=== PATIENT | female | born 1940 | race Caucasian/White ===

== ENCOUNTER 2017-10-27 17:42 | Inpatient (IN) | payer MEDICARE, MEDICAID ==
[~2017-10-27] VITALS: Ht 154.9 cm; Wt 77.2 kg
[~2017-10-27 17:42] MED LIST: AMIT-189 PO; BECL8.7A5 IH; CEPH500C2 PO; CLON-514 PO; DIPH25CA83 PO; FLUO40CA PO; HYDR-565 PO; LOPE1TAB46 PO; NAPR250T4 PO; NITR0.4T51 SL; ONDA4TAB12 PO; PHEN-824 PO; PRAV20TA PO
[2017-10-27] MEDS ORDERED: ipratropium/albuterol 3ml nebule NEB ONE (18:05)
[2017-10-27 18:16] LABS: BASOPHILS % (AUTO) 0.5 % (0-1); EOSINOPHILS # (AUTO) 0.4 X10'3 (0-0.9); EOSINOPHILS % (AUTO) 6.4 % (0-6); HEMATOCRIT 29.4 % (35.0-45.0); HEMOGLOBIN 9.4 g/dl (12.0-16.0); LYMPHOCYTES # (AUTO) 1.3 X10'3 (1.1-4.8); LYMPHOCYTES % (AUTO) 24.3 % (21-51); MEAN CORPUSCULAR HEMOGLOBIN 23.5 PG (27.0-31.0); MEAN CORPUSCULAR HGB CONC 31.9 % (33.0-36.5); MEAN CORPUSCULAR VOLUME 73.7 FL (78-98); MEAN PLATELET VOLUME 7.7 FL (7.4-10.4); MONOCYTES # (AUTO) 0.3 X10'3 (0-0.9); MONOCYTES % (AUTO) 6.3 % (2-12); NEUTROPHILS # (AUTO) 3.5 X10'3 (1.8-7.7); NEUTROPHILS % (AUTO) 62.5 % (42-75); PLATELET COUNT 477 X10'3 (140-440); RED BLOOD COUNT 3.99 X10'6 (4.20-5.60); RED CELL DISTRIBUTION WIDTH 16.5 % (11.5-14.5); WHITE BLOOD COUNT 5.5 X10'3 (4.5-11.0)
[2017-10-27 18:24] LABS: PARTIAL THROMBOPLASTIN TIME 27 SECONDS (22-32); PROTHROMBIN TIME 9.9 SECONDS (9.0-12.0)
[2017-10-27 18:29] LABS: ALANINE AMINOTRANSFERASE 39 U/L (12-78); ALBUMIN 3.6 G/DL (3.4-5.0); ALKALINE PHOSPHATASE 124 IU/L (46-116); ANION GAP 7 (8-16); ASPARTATE AMINO TRANSFERASE 43 U/L (10-37); BILIRUBIN,TOTAL 0.5 MG/DL (0.1-1.0); BLOOD UREA NITROGEN 9 MG/DL (7-18); BUN/CREATININE RATIO 9.3 (6.6-38.0); CALCIUM 8.5 MG/DL (8.5-10.1); CHLORIDE 100 MMOL/L (99-107); CREATININE 0.97 MG/DL (0.40-0.90); GLUCOSE 109 MG/DL (70-104); SODIUM 136 MMOL/L (135-145); TOTAL CARBON DIOXIDE 29.5 MMOL/L (24-32); TOTAL PROTEIN 7.1 G/DL (6.4-8.2); eGFR 56 ML/MIN
[2017-10-27 18:42] LABS: D-DIMER 0.54 MG/L FEU (0-0.50)
[2017-10-27] MEDS ORDERED: iohexol 350MG/ML 100ml bottle IV ONE (18:47)
[2017-10-27] MEDS ORDERED: HYDROcodone/acetaminophen 10/325mg tab PO ONE (20:20)
[2017-10-27] MEDS ORDERED: ALB0.5UD IH (20:43)
[2017-10-27] MEDS ORDERED: FLUO20CA39 PO (20:43)
[2017-10-27] MEDS ORDERED: PREVCR VG (20:43)
[2017-10-27] MEDS ORDERED: POLY17PO10 PO (20:43)
[2017-10-27] MEDS ORDERED: LORA-512 PO (20:43)
[2017-10-27] MEDS ORDERED: CLON-527 PO (20:43)
[2017-10-27] MEDS ORDERED: AMIT10TA6 PO (20:43)
[2017-10-27] MEDS ORDERED: ondansetron/PF 4mg/2ml inj IV PRN (21:55)
[2017-10-27] MEDS ORDERED: magnesium hydroxide 30ml (MOM) UD suspension PO PRN (21:55)
[2017-10-27] MEDS ORDERED: mag hydrox/Alum hydrox/simeth 30ml oral suspension PO PRN (21:55)
[2017-10-27] MEDS ORDERED: acetaminophen 325mg tablet PO PRN (21:55)
[2017-10-27] MEDS ORDERED: nitroGLYCERIN 0.4mg SUBLingual tab SL SCH (22:00)
[2017-10-27] MEDS ORDERED: albuterol 2.5 MG/3 ML nebule NEB PRN (22:00)
[2017-10-27] MEDS: HYDROcodone/acetaminophen 10/325mg tab PO PRN (22:27)
[2017-10-27] MEDS: clonazePAM 1mg tablet PO PRN (22:27)
[2017-10-28 00:25] VITALS: BP 102/51
[2017-10-28] MEDS ORDERED: azithromycin 250mg tablet PO ONE (02:10)
[2017-10-28] MEDS: CefTRIAXone/D5W-Rocephin 1gm 50 ML IV SCH ×2 (03:01→08:09)
[2017-10-28] MEDS: ipratropium/albuterol 3ml nebule NEB SCH ×4 (03:23→20:54)
[2017-10-28 06:08] LABS: ALANINE AMINOTRANSFERASE 37 U/L (12-78); ALBUMIN/GLOBULIN RATIO 0.9 (1.1-1.5); ALKALINE PHOSPHATASE 118 IU/L (46-116); ANION GAP 7 (8-16); ASPARTATE AMINO TRANSFERASE 40 U/L (10-37); BILIRUBIN,TOTAL 0.3 MG/DL (0.1-1.0); BLOOD UREA NITROGEN 8 MG/DL (7-18); BUN/CREATININE RATIO 7.8 (6.6-38.0); CALCIUM 8.1 MG/DL (8.5-10.1); CHLORIDE 104 MMOL/L (99-107); CREATININE 1.02 MG/DL (0.40-0.90); GLUCOSE 98 MG/DL (70-104); POTASSIUM 3.1 MMOL/L (3.5-5.1); SODIUM 139 MMOL/L (135-145); TOTAL CARBON DIOXIDE 27.7 MMOL/L (24-32); TOTAL PROTEIN 6.2 G/DL (6.4-8.2); eGFR 53 ML/MIN
[2017-10-28 06:17] LABS: EOSINOPHILS # (AUTO) 0.3 X10'3 (0-0.9); EOSINOPHILS % (AUTO) 7.3 % (0-6); HEMATOCRIT 25.9 % (35.0-45.0); HEMOGLOBIN 8.3 g/dl (12.0-16.0); LYMPHOCYTES # (AUTO) 1.6 X10'3 (1.1-4.8); LYMPHOCYTES % (AUTO) 37.3 % (21-51); MEAN CORPUSCULAR HEMOGLOBIN 23.3 PG (27.0-31.0); MEAN CORPUSCULAR VOLUME 72.9 FL (78-98); MEAN PLATELET VOLUME 7.7 FL (7.4-10.4); MONOCYTES # (AUTO) 0.5 X10'3 (0-0.9); NEUTROPHILS # (AUTO) 1.8 X10'3 (1.8-7.7); NEUTROPHILS % (AUTO) 43.4 % (42-75); PLATELET COUNT 427 X10'3 (140-440); RED BLOOD COUNT 3.55 X10'6 (4.20-5.60); WHITE BLOOD COUNT 4.2 X10'3 (4.5-11.0)
[2017-10-28] MEDS ORDERED: CAFFEINE CITRATE 60 MG/3 ML injection vial IV PRN (07:30)
[2017-10-28] MEDS ORDERED: glucagon, human recombinant 1mg kit SUBCUT PRN (07:30)
[2017-10-28] MEDS ORDERED: MESSAGE TO PHARMACY PO ONE (07:30)
[2017-10-28] MEDS ORDERED: potassium Cl 20 mEq SR tablet PO PRN (07:30)
[2017-10-28] MEDS ORDERED: potassium Cl 40MEQ/NS 500ml 500 ML IV PRN ×2 (07:30)
[2017-10-28] MEDS ORDERED: dextrose 50%-water 50ml dispensing syringe IV PRN ×2 (07:30)
[2017-10-28] MEDS ORDERED: insulin Lispro (HumaLOG) vial - multi-dose SQ SCH (07:30)
[2017-10-28] MEDS ORDERED: nitroGLYCERIN 0.4mg SUBLingual tab SL PRN (07:30)
[2017-10-28] MEDS ORDERED: dextrose ORAL solution 15 GM/59 ML bottle PO PRN ×2 (07:30)
[2017-10-28] MEDS ORDERED: metoprolol tartrate 1mg/ml inj IV PRN (07:30)
[2017-10-28] MEDS ORDERED: regadenoson 0.4mg/5ml syringe IV ONE (07:30)
[2017-10-28 07:38] VITALS: BP 123/49
[2017-10-28] MEDS: polyethylene glycol 3350 17gm powd pack PO SCH (08:00)
[2017-10-28] MEDS: amitriptyline 10mg tablet PO SCH ×3 (08:00→19:48)
[2017-10-28] MEDS: atorvastatin 10mg tablet PO SCH (08:08)
[2017-10-28] MEDS: clonazePAM 1mg tablet PO PRN ×2 (08:08→19:37)
[2017-10-28] MEDS: loratadine 10mg tablet PO SCH (08:08)
[2017-10-28] MEDS: FLUoxetine 20mg capsule PO SCH (08:09)
[2017-10-28] MEDS: potassium Cl 20 mEq SR tablet PO PRN ×3 (08:09→16:53)
[2017-10-28] MEDS: HYDROcodone/acetaminophen 10/325mg tab PO PRN (08:14)
[2017-10-28] MEDS: budesonide 0.5mg/2ml UD nebule IH SCH ×2 (09:34→20:54)
[2017-10-28 11:58] VITALS: BP 109/42
[2017-10-28 13:19] LABS: CLARITY,URINE CLEAR (Clear); COLOR,URINE YELLOW (Yellow); GLUCOSE, URINE NEGATIVE (Neg); KETONES,URINE NEGATIVE (Neg); LEUKOCYTE ESTERASE ,URINE SMALL (Neg); NITRITES, URINE NEGATIVE (Neg); OCCULT BLOOD,URINE NEGATIVE (Neg); PROTEIN,URINE NEGATIVE (Neg); UROBILINOGEN,URINE 0.2 E.U/dL (0.2-1.0)
[2017-10-28 13:23] LABS: UA COLLECTION TYPE NON-SPECIFIED
[2017-10-28 13:24] LABS: RBC,URINE 0-2 /HPF (0-2); WBC,URINE 0-4 /HPF (0-4)
[2017-10-28 13:25] LABS: BACTERIA,URINE FEW /HPF (Neg); MUCUS STRANDS FEW /LPF (Neg); SQUAMOUS EPITHELIAL CELL,UR MODERATE /LPF (FEW)
[2017-10-28] MEDS: HYDROcodone/acetaminophen 5mg/325mg tablet PO PRN ×2 (17:33→23:51)
[2017-10-28 20:00] VITALS: BP 150/65
[2017-10-28] MEDS ORDERED: insulin glargine (Lantus) pen - multi-dose SQ SCH (21:00)
[2017-10-29] VITALS: BP 146/63
[2017-10-29] MEDS: ipratropium/albuterol 3ml nebule NEB SCH ×3 (02:53→14:23)
[2017-10-29 06:03] LABS: BASOPHILS % (AUTO) 0.7 % (0-1); EOSINOPHILS # (AUTO) 0.4 X10'3 (0-0.9); EOSINOPHILS % (AUTO) 7.2 % (0-6); HEMATOCRIT 26.7 % (35.0-45.0); HEMOGLOBIN 8.6 g/dl (12.0-16.0); LYMPHOCYTES # (AUTO) 1.7 X10'3 (1.1-4.8); LYMPHOCYTES % (AUTO) 30.1 % (21-51); MEAN CORPUSCULAR HEMOGLOBIN 23.3 PG (27.0-31.0); MEAN CORPUSCULAR HGB CONC 32.1 % (33.0-36.5); MEAN CORPUSCULAR VOLUME 72.5 FL (78-98); MEAN PLATELET VOLUME 7.8 FL (7.4-10.4); MONOCYTES # (AUTO) 0.5 X10'3 (0-0.9); MONOCYTES % (AUTO) 8.5 % (2-12); NEUTROPHILS % (AUTO) 53.5 % (42-75); PLATELET COUNT 448 X10'3 (140-440); RED BLOOD COUNT 3.69 X10'6 (4.20-5.60); RED CELL DISTRIBUTION WIDTH 17.3 % (11.5-14.5); WHITE BLOOD COUNT 5.6 X10'3 (4.5-11.0)
[2017-10-29 06:25] LABS: ALANINE AMINOTRANSFERASE 29 U/L (12-78); ALBUMIN 3.1 G/DL (3.4-5.0); ALBUMIN/GLOBULIN RATIO 0.9 (1.1-1.5); ALKALINE PHOSPHATASE 104 IU/L (46-116); ANION GAP 10 (8-16); ASPARTATE AMINO TRANSFERASE 23 U/L (10-37); BILIRUBIN,TOTAL 0.2 MG/DL (0.1-1.0); BLOOD UREA NITROGEN 9 MG/DL (7-18); BUN/CREATININE RATIO 9.4 (6.6-38.0); CALCIUM 8.5 MG/DL (8.5-10.1); CHLORIDE 105 MMOL/L (99-107); CREATININE 0.96 MG/DL (0.40-0.90); GLUCOSE 103 MG/DL (70-104); POTASSIUM 3.7 MMOL/L (3.5-5.1); SODIUM 140 MMOL/L (135-145); TOTAL CARBON DIOXIDE 25.2 MMOL/L (24-32); TOTAL PROTEIN 6.5 G/DL (6.4-8.2); eGFR 57 ML/MIN
[2017-10-29 07:00] VITALS: BP 155/72
[2017-10-29] MEDS: budesonide 0.5mg/2ml UD nebule IH SCH (07:48)
[2017-10-29] MEDS: clonazePAM 1mg tablet PO PRN (07:52)
[2017-10-29] MEDS: atorvastatin 10mg tablet PO SCH (07:56)
[2017-10-29] MEDS: loratadine 10mg tablet PO SCH (07:57)
[2017-10-29] MEDS: FLUoxetine 20mg capsule PO SCH (07:57)
[2017-10-29] MEDS ORDERED: azithromycin 250mg tablet PO SCH ×2 (08:00→21:00)
[2017-10-29] MEDS: polyethylene glycol 3350 17gm powd pack PO SCH (08:00)
[2017-10-29] MEDS: amitriptyline 10mg tablet PO SCH (08:00)
== END 2017-10-29 14:37 | disposition home or self-care (01) | DRG 189 ==
LOC: ER 17:42 → ED HOLD 21:52 → SUR 3N 22:45
PROVIDERS: ADMIT Emergency Medicine; ATTEND Internal Medicine
PROC: B3201ZZ Computerized Tomography (CT Scan) of Thoracic Aorta using Low Osmolar Contrast (ICD-10-PCS; principal; 2017-10-27)
DX: J96.20 Acute and chronic respiratory failure, unspecified whether with hypoxia or hypercapnia (principal); J44.1 Chronic obstructive pulmonary disease with (acute) exacerbation; R07.89 Other chest pain; I50.9 Heart failure, unspecified; I11.0 Hypertensive heart disease with heart failure; I25.10 Atherosclerotic heart disease of native coronary artery without angina pectoris; F41.0 Panic disorder [episodic paroxysmal anxiety]; F32.9 Major depressive disorder, single episode, unspecified; E11.51 Type 2 diabetes mellitus with diabetic peripheral angiopathy without gangrene; E78.5 Hyperlipidemia, unspecified; R51 Headache; F17.200 Nicotine dependence, unspecified, uncomplicated; E78.00 Pure hypercholesterolemia, unspecified; F02.80 Dementia in other diseases classified elsewhere, unspecified severity, without behavioral disturbance, psychotic disturbance, mood disturbance, and anxiety; G30.9 Alzheimer's disease, unspecified; E87.6 Hypokalemia; G89.29 Other chronic pain; Z90.710 Acquired absence of both cervix and uterus; Z95.1 Presence of aortocoronary bypass graft; Z79.899 Other long term (current) drug therapy; Z79.4 Long term (current) use of insulin; Z88.6 Allergy status to analgesic agent; Z88.8 Allergy status to other drugs, medicaments and biological substances; Z86.73 Personal history of transient ischemic attack (TIA), and cerebral infarction without residual deficits; Z86.711 Personal history of pulmonary embolism
CPT/HCPCS: 36415; 71045; 71275; 76881; 80053; 81001; 82948; 83036; 84484; 85025; 85379; 85610; 85730; 87070; 93005; 93970; 94640; 94760; 97110; 97116; 97161; 99285; J0696; J1815; J7030; J7626; Q9967

== ENCOUNTER 2017-11-07 17:24 | Emergency (ER) | payer MEDICARE, MEDICAID ==
[~2017-11-07] VITALS: Ht 154.9 cm; Wt 77.1 kg
[~2017-11-07 17:24] MED LIST changes: +ALB0.5UD IH; -AMIT-189 PO; +AMIT10TA6 PO; -CEPH500C2 PO; +FLUO20CA39 PO; -FLUO40CA PO; +LORA-512 PO; -PHEN-824 PO; +POLY17PO10 PO; +PREVCR VG
[2017-11-07] MEDS ORDERED: ketorolac tromethamine 15mg/ml inj. IM ONE (18:10)
[2017-11-07] MEDS ORDERED: HYDROcodone/acetaminophen 5mg/325mg tablet PO ONE (18:10)
[2017-11-07] MEDS ORDERED: morphine 4 MG/ML inj SYRINge IM ONE (18:20)
[2017-11-07 18:51] VITALS: BP 131/87
== END 2017-11-07 18:52 | disposition home or self-care (01) ==
LOC: ER 17:25
DX: G89.29 Other chronic pain (principal); M54.41 Lumbago with sciatica, right side; E78.00 Pure hypercholesterolemia, unspecified; I10 Essential (primary) hypertension; J44.9 Chronic obstructive pulmonary disease, unspecified; Z90.49 Acquired absence of other specified parts of digestive tract; Z90.710 Acquired absence of both cervix and uterus; Z88.8 Allergy status to other drugs, medicaments and biological substances; Z79.899 Other long term (current) drug therapy
CPT/HCPCS: 96372; 99283; J2270; J1885

== ENCOUNTER 2018-01-28 13:55 | Emergency (ER) | payer MEDICARE, MEDICAID ==
[~2018-01-28] VITALS: Ht 154.9 cm; Wt 72.3 kg
[~2018-01-28 13:55] MED LIST changes: +HYDR-4353 PO; -HYDR-565 PO; +NITR100C6 PO
[2018-01-28 14:38] LABS: BASOPHILS # (AUTO) 0.1 X10'3 (0-0.2); BASOPHILS % (AUTO) 0.7 % (0-1); EOSINOPHILS # (AUTO) 0.1 X10'3 (0-0.9); EOSINOPHILS % (AUTO) 1.9 % (0-6); HEMATOCRIT 33.5 % (35.0-45.0); HEMOGLOBIN 10.7 g/dl (12.0-16.0); LYMPHOCYTES # (AUTO) 1.9 X10'3 (1.1-4.8); LYMPHOCYTES % (AUTO) 26.6 % (21-51); MEAN CORPUSCULAR HEMOGLOBIN 22.6 PG (27.0-31.0); MEAN CORPUSCULAR VOLUME 70.6 FL (78-98); MEAN PLATELET VOLUME 7.9 FL (7.4-10.4); MONOCYTES # (AUTO) 0.4 X10'3 (0-0.9); MONOCYTES % (AUTO) 5.8 % (2-12); NEUTROPHILS # (AUTO) 4.7 X10'3 (1.8-7.7); PLATELET COUNT 682 X10'3 (140-440); RED BLOOD COUNT 4.76 X10'6 (4.20-5.60); RED CELL DISTRIBUTION WIDTH 16.6 % (11.5-14.5); WHITE BLOOD COUNT 7.2 X10'3 (4.5-11.0)
[2018-01-28 14:56] LABS: ALANINE AMINOTRANSFERASE 111 U/L (12-78); ANION GAP 13 (8-16); ASPARTATE AMINO TRANSFERASE 139 U/L (10-37); BILIRUBIN,TOTAL 0.5 MG/DL (0.1-1.0); BLOOD UREA NITROGEN 13 MG/DL (7-18); BUN/CREATININE RATIO 11.5 (6.6-38.0); CALCIUM 8.9 MG/DL (8.5-10.1); CHLORIDE 99 MMOL/L (99-107); CREATININE 1.13 MG/DL (0.40-0.90); GLUCOSE 106 MG/DL (70-104); POTASSIUM 4.1 MMOL/L (3.5-5.1); SODIUM 137 MMOL/L (135-145); TOTAL CARBON DIOXIDE 25.4 MMOL/L (24-32); TOTAL PROTEIN 8.2 G/DL (6.4-8.2); eGFR 47 ML/MIN
[2018-01-28 15:10] LABS: ALBUMIN 4.1 G/DL (3.4-5.0); ALKALINE PHOSPHATASE 361 IU/L (46-116)
[2018-01-28] MEDS ORDERED: normal saline 1000ML IV soln IV ONE (15:20)
[2018-01-28 16:47] VITALS: BP 131/82
== END 2018-01-28 17:28 | disposition home or self-care (01) ==
LOC: ER 13:56
DX: R50.9 Fever, unspecified (principal); R74.8 Abnormal levels of other serum enzymes; R74.0 Nonspecific elevation of levels of transaminase and lactic acid dehydrogenase [LDH]; E78.00 Pure hypercholesterolemia, unspecified; I10 Essential (primary) hypertension; J44.9 Chronic obstructive pulmonary disease, unspecified; G89.29 Other chronic pain; Z86.711 Personal history of pulmonary embolism; Z90.49 Acquired absence of other specified parts of digestive tract; Z90.710 Acquired absence of both cervix and uterus; Z98.890 Other specified postprocedural states; Z88.6 Allergy status to analgesic agent; Z88.5 Allergy status to narcotic agent; Z79.899 Other long term (current) drug therapy
CPT/HCPCS: 36415; 71045; 74176; 80053; 83605; 84145; 84484; 85025; 87040; 93005; 99285

== ENCOUNTER 2018-02-08 18:27 | Emergency (ER) | payer MEDICARE, MEDICAID ==
[~2018-02-08] VITALS: Ht 152.4 cm; Wt 67.8 kg
[2018-02-08] MEDS ORDERED: normal saline 1000ML IV soln IVB ONE (19:05)
[2018-02-08 19:43] LABS: CLARITY,URINE SLIGHTLY CLOUDY (Clear); COLOR,URINE YELLOW (Yellow); GLUCOSE, URINE NEGATIVE (Neg); KETONES,URINE NEGATIVE (Neg); LEUKOCYTE ESTERASE ,URINE MODERATE (Neg); NITRITES, URINE NEGATIVE (Neg); OCCULT BLOOD,URINE NEGATIVE (Neg); PROTEIN,URINE NEGATIVE (Neg); UROBILINOGEN,URINE 0.2 E.U/dL (0.2-1.0)
[2018-02-08 19:44] LABS: BASOPHILS % (AUTO) 0.6 % (0-1); EOSINOPHILS # (AUTO) 0.2 X10'3 (0-0.9); EOSINOPHILS % (AUTO) 4.7 % (0-6); HEMOGLOBIN 8.9 g/dl (12.0-16.0); LYMPHOCYTES # (AUTO) 1.8 X10'3 (1.1-4.8); LYMPHOCYTES % (AUTO) 37.5 % (21-51); MEAN CORPUSCULAR HEMOGLOBIN 22.4 PG (27.0-31.0); MEAN CORPUSCULAR HGB CONC 31.8 % (33.0-36.5); MEAN CORPUSCULAR VOLUME 70.7 FL (78-98); MEAN PLATELET VOLUME 7.9 FL (7.4-10.4); MONOCYTES # (AUTO) 0.4 X10'3 (0-0.9); MONOCYTES % (AUTO) 8.1 % (2-12); NEUTROPHILS # (AUTO) 2.4 X10'3 (1.8-7.7); NEUTROPHILS % (AUTO) 49.1 % (42-75); PLATELET COUNT 572 X10'3 (140-440); RED BLOOD COUNT 3.96 X10'6 (4.20-5.60); RED CELL DISTRIBUTION WIDTH 19.2 % (11.5-14.5); WHITE BLOOD COUNT 4.8 X10'3 (4.5-11.0)
[2018-02-08 19:46] LABS: UA COLLECTION TYPE NON-SPECIFIED
[2018-02-08 19:48] LABS: BACTERIA,URINE 3+ /HPF (Neg); RBC,URINE 0-2 /HPF (0-2); SQUAMOUS EPITHELIAL CELL,UR FEW /LPF (FEW); WBC,URINE 20-30 /HPF (0-4)
[2018-02-08 19:49] LABS: ALANINE AMINOTRANSFERASE 16 U/L (12-78); ALBUMIN 3.5 G/DL (3.4-5.0); ALKALINE PHOSPHATASE 122 IU/L (46-116); ANION GAP 7 (8-16); ASPARTATE AMINO TRANSFERASE 11 U/L (10-37); BILIRUBIN,TOTAL 0.2 MG/DL (0.1-1.0); BLOOD UREA NITROGEN 6 MG/DL (7-18); BUN/CREATININE RATIO 6.3 (6.6-38.0); CALCIUM 8.4 MG/DL (8.5-10.1); CHLORIDE 100 MMOL/L (99-107); CREATININE 0.95 MG/DL (0.40-0.90); GLUCOSE 93 MG/DL (70-104); POTASSIUM 4.2 MMOL/L (3.5-5.1); SODIUM 135 MMOL/L (135-145); TOTAL CARBON DIOXIDE 27.9 MMOL/L (24-32); eGFR 57 ML/MIN
[2018-02-08 19:51] VITALS: BP 114/63
[2018-02-08 19:54] LABS: LIPASE 403 U/L (73-393); TROPONIN I < 0.04 NG/ML (0.0-0.05)
[2018-02-08] MEDS ORDERED: CEPH-571 PO (19:57)
[2018-02-08 20:11] LABS: ANISOCYTOSIS 2+; PLATELET ESTIMATE INCREASED
[2018-02-08 20:12] LABS: ELLIPTOCYTES 1+; HYPOCHROMASIA 2+; MICROCYTOSIS 2+
== END 2018-02-08 20:20 | disposition home or self-care (01) ==
LOC: ER 18:28
DX: E86.0 Dehydration (principal); N39.0 Urinary tract infection, site not specified; D64.89 Other specified anemias; R53.1 Weakness; E78.00 Pure hypercholesterolemia, unspecified; I10 Essential (primary) hypertension; J44.9 Chronic obstructive pulmonary disease, unspecified; G89.29 Other chronic pain; F17.210 Nicotine dependence, cigarettes, uncomplicated; Z86.711 Personal history of pulmonary embolism; Z98.890 Other specified postprocedural states; Z90.49 Acquired absence of other specified parts of digestive tract; Z90.710 Acquired absence of both cervix and uterus; Z88.8 Allergy status to other drugs, medicaments and biological substances; Z88.6 Allergy status to analgesic agent; Z79.899 Other long term (current) drug therapy
CPT/HCPCS: 36415; 80053; 81001; 83690; 84484; 85025; 87077; 87088; 87186; 93005; 99285; J7030; 96360

== ENCOUNTER 2018-03-21 16:26 | Emergency (ER) | payer MEDICARE, MEDICAID ==
[~2018-03-21] VITALS: Ht 152.4 cm; Wt 67.2 kg
[~2018-03-21 16:26] MED LIST changes: +CEPH-571 PO
[2018-03-21 17:18] LABS: BASOPHILS % (AUTO) 0.5 % (0-1); EOSINOPHILS # (AUTO) 0.4 X10'3 (0-0.9); EOSINOPHILS % (AUTO) 4.2 % (0-6); HEMATOCRIT 40.6 % (35.0-45.0); HEMOGLOBIN 12.9 g/dl (12.0-16.0); LYMPHOCYTES # (AUTO) 2.6 X10'3 (1.1-4.8); MEAN CORPUSCULAR HEMOGLOBIN 25.3 PG (27.0-31.0); MEAN CORPUSCULAR HGB CONC 31.9 % (33.0-36.5); MEAN CORPUSCULAR VOLUME 79.2 FL (78-98); MEAN PLATELET VOLUME 8.4 FL (7.4-10.4); MONOCYTES # (AUTO) 0.6 X10'3 (0-0.9); NEUTROPHILS # (AUTO) 5.3 X10'3 (1.8-7.7); NEUTROPHILS % (AUTO) 59.3 % (42-75); PLATELET COUNT 525 X10'3 (140-440); RED BLOOD COUNT 5.12 X10'6 (4.20-5.60); RED CELL DISTRIBUTION WIDTH 26.4 % (11.5-14.5); WHITE BLOOD COUNT 8.9 X10'3 (4.5-11.0)
[2018-03-21 17:32] LABS: ALANINE AMINOTRANSFERASE 25 U/L (12-78); ALBUMIN/GLOBULIN RATIO 1.1 (1.1-1.5); ALKALINE PHOSPHATASE 119 IU/L (46-116); ANION GAP 9 (8-16); ASPARTATE AMINO TRANSFERASE 19 U/L (10-37); BILIRUBIN,TOTAL 0.3 MG/DL (0.1-1.0); BLOOD UREA NITROGEN 7 MG/DL (7-18); BUN/CREATININE RATIO 7.8 (6.6-38.0); CALCIUM 9.2 MG/DL (8.5-10.1); CHLORIDE 99 MMOL/L (99-107); GLUCOSE 97 MG/DL (70-104); POTASSIUM 4.2 MMOL/L (3.5-5.1); SODIUM 136 MMOL/L (135-145); TOTAL PROTEIN 7.7 G/DL (6.4-8.2); eGFR 61 ML/MIN
[2018-03-21 17:33] LABS: CLARITY,URINE CLOUDY (Clear); COLOR,URINE YELLOW (Yellow); GLUCOSE, URINE NEGATIVE (Neg); KETONES,URINE NEGATIVE (Neg); LEUKOCYTE ESTERASE ,URINE LARGE (Neg); NITRITES, URINE NEGATIVE (Neg); OCCULT BLOOD,URINE TRACE-INTACT (Neg); PROTEIN,URINE NEGATIVE (Neg); UROBILINOGEN,URINE 0.2 E.U/dL (0.2-1.0)
[2018-03-21 17:35] LABS: UA COLLECTION TYPE CLN CATCH MIDSTREAM
[2018-03-21 17:36] LABS: PROTHROMBIN TIME 10.6 SECONDS (9.0-12.0)
[2018-03-21 17:43] LABS: BACTERIA,URINE 2+ /HPF (Neg); RBC,URINE 0-2 /HPF (0-2); SQUAMOUS EPITHELIAL CELL,UR FEW /LPF (FEW); WBC,URINE TNTC /HPF (0-4)
[2018-03-21 17:48] LABS: ANISOCYTOSIS 3+; PLATELET ESTIMATE INCREASED
[2018-03-21 17:49] LABS: ELLIPTOCYTES FEW; SCHISTOCYTES FEW
[2018-03-21 18:29] VITALS: BP 138/75
[2018-03-21] MEDS ORDERED: levoFLOXACIN 750MG TABLET PO ONE (18:40)
[2018-03-21] MEDS ORDERED: LEVO500T2 PO (18:41)
== END 2018-03-21 19:13 | disposition home or self-care (01) ==
LOC: ER 16:26
DX: N39.0 Urinary tract infection, site not specified (principal); R05 Cough; R19.7 Diarrhea, unspecified; E78.00 Pure hypercholesterolemia, unspecified; I10 Essential (primary) hypertension; J44.9 Chronic obstructive pulmonary disease, unspecified; G89.29 Other chronic pain; Z90.49 Acquired absence of other specified parts of digestive tract; Z90.710 Acquired absence of both cervix and uterus; F17.200 Nicotine dependence, unspecified, uncomplicated; Z88.6 Allergy status to analgesic agent; Z88.8 Allergy status to other drugs, medicaments and biological substances; Z79.2 Long term (current) use of antibiotics; Z79.899 Other long term (current) drug therapy
CPT/HCPCS: 36415; 71046; 80053; 81001; 85025; 85610; 87077; 87088; 87186; 99284

== ENCOUNTER 2018-05-08 17:38 | Emergency (ER) | payer MEDICARE, MEDICAID ==
[~2018-05-08] VITALS: Ht 152.4 cm; Wt 68.7 kg
[2018-05-08 17:41] VITALS: BP 145/81
[2018-05-08 18:47] LABS: CLARITY,URINE CLOUDY (Clear); COLOR,URINE YELLOW (Yellow); GLUCOSE, URINE NEGATIVE (Neg); KETONES,URINE NEGATIVE (Neg); LEUKOCYTE ESTERASE ,URINE SMALL (Neg); NITRITES, URINE NEGATIVE (Neg); OCCULT BLOOD,URINE NEGATIVE (Neg); PH,URINE 8.5 (4.8-8.0); PROTEIN,URINE NEGATIVE (Neg); UROBILINOGEN,URINE 0.2 E.U/dL (0.2-1.0)
[2018-05-08 18:49] LABS: UA COLLECTION TYPE NON-SPECIFIED
[2018-05-08 19:04] LABS: RBC,URINE NONE SEEN /HPF (0-2); WBC,URINE 0-4 /HPF (0-4)
[2018-05-08 19:06] LABS: AMORPHOUS PHOSPHATES 3+; BACTERIA,URINE FEW /HPF (Neg); SQUAMOUS EPITHELIAL CELL,UR FEW /LPF (FEW)
--- NOTE | 2018-05-08 20:26 | NUR ---
NO RESPONSE FROM LOBBY AFTER ATTEMPTING TO ROOM. CALL PLACED RUSSSTEPHEN ON FILE. SPOKE WITH PATIENT, EXPRESSED OUR CONCERN FOR HER WELL BEING, AND TO ENCOURAGE HER TO RETURN FOR EVAL AND TX. SIENNA INFORMED ME THAT SHE WILL RETURN IN THE MORNING, AND UNDERSTOOD IF SHE FELT SH WORSENING SHE WOULD RETURN TONINGHT.
[2018-05-09] MEDS ORDERED: CIPR-259 PO (19:29)
== END 2018-05-08 20:30 | disposition left against medical advice (07) ==
LOC: ER 17:38
DX: N39.0 Urinary tract infection, site not specified (principal); Z53.21 Procedure and treatment not carried out due to patient leaving prior to being seen by health care provider
CPT/HCPCS: 81001; 87077; 87088; 87186

== ENCOUNTER 2018-05-09 17:55 | Emergency (ER) | payer MEDICARE, MEDICAID ==
[~2018-05-09] VITALS: Ht 152.4 cm; Wt 69.0 kg
[2018-05-09 19:00] LABS: CLARITY,URINE SLIGHTLY CLOUDY (Clear); COLOR,URINE YELLOW (Yellow); GLUCOSE, URINE NEGATIVE (Neg); KETONES,URINE NEGATIVE (Neg); LEUKOCYTE ESTERASE ,URINE LARGE (Neg); NITRITES, URINE POSITIVE (Neg); OCCULT BLOOD,URINE NEGATIVE (Neg); PROTEIN,URINE NEGATIVE (Neg); UROBILINOGEN,URINE 0.2 E.U/dL (0.2-1.0)
[2018-05-09 19:04] LABS: UA COLLECTION TYPE CLN CATCH MIDSTREAM
[2018-05-09 19:06] LABS: WBC CLUMPS,URINE MODERATE /HPF (NEGATIVE); WBC,URINE TNTC /HPF (0-4)
[2018-05-09 19:08] LABS: BACTERIA,URINE 4+ /HPF (Neg); RBC,URINE 0-2 /HPF (0-2); SQUAMOUS EPITHELIAL CELL,UR FEW /LPF (FEW)
[2018-05-09] MEDS ORDERED: CIPR-259 PO (19:29)
[2018-05-09 19:38] VITALS: BP 144/80
== END 2018-05-09 19:41 | disposition home or self-care (01) ==
LOC: ER 17:56
DX: N39.0 Urinary tract infection, site not specified (principal); E78.00 Pure hypercholesterolemia, unspecified; I10 Essential (primary) hypertension; J44.9 Chronic obstructive pulmonary disease, unspecified; G89.29 Other chronic pain; F17.200 Nicotine dependence, unspecified, uncomplicated; Z88.8 Allergy status to other drugs, medicaments and biological substances; Z79.899 Other long term (current) drug therapy; Z90.710 Acquired absence of both cervix and uterus; Z90.49 Acquired absence of other specified parts of digestive tract
CPT/HCPCS: 81001; 87077; 87088; 87186; 99284

== ENCOUNTER 2018-08-18 02:10 | Emergency (ER) | payer MEDICARE, MEDICAID ==
[~2018-08-18] VITALS: Ht 162.6 cm; Wt 65.0 kg
[2018-08-18 03:33] LABS: BASOPHILS # (AUTO) 0.1 X10'3 (0-0.2); BASOPHILS % (AUTO) 0.7 % (0-1); EOSINOPHILS # (AUTO) 0.4 X10'3 (0-0.9); EOSINOPHILS % (AUTO) 4.6 % (0-6); HEMATOCRIT 35.1 % (35.0-45.0); HEMOGLOBIN 11.8 g/dl (12.0-16.0); LYMPHOCYTES # (AUTO) 3.1 X10'3 (1.1-4.8); LYMPHOCYTES % (AUTO) 33.2 % (21-51); MEAN CORPUSCULAR HEMOGLOBIN 30.5 PG (27.0-31.0); MEAN CORPUSCULAR HGB CONC 33.6 g/dL (33.0-36.5); MEAN CORPUSCULAR VOLUME 90.9 FL (78-98); MEAN PLATELET VOLUME 8.6 FL (7.4-10.4); MONOCYTES % (AUTO) 10.1 % (2-12); NEUTROPHILS # (AUTO) 4.8 X10'3 (1.8-7.7); NEUTROPHILS % (AUTO) 51.4 % (42-75); PLATELET COUNT 444 X10'3 (140-440); RED BLOOD COUNT 3.87 X10'6 (4.20-5.60); RED CELL DISTRIBUTION WIDTH 14.7 % (11.5-14.5); WHITE BLOOD COUNT 9.4 X10'3 (4.5-11.0)
[2018-08-18 03:38] LABS: ALANINE AMINOTRANSFERASE 93 U/L (12-78); ALBUMIN 3.4 G/DL (3.4-5.0); ALBUMIN/GLOBULIN RATIO 1.1 (1.1-1.5); ALKALINE PHOSPHATASE 155 IU/L (46-116); ANION GAP 14 (8-16); ASPARTATE AMINO TRANSFERASE 208 U/L (10-37); BILIRUBIN,TOTAL 0.3 MG/DL (0.1-1.0); BLOOD UREA NITROGEN 9 MG/DL (7-18); BUN/CREATININE RATIO 12.3 (6.6-38.0); CALCIUM 8.4 MG/DL (8.5-10.1); CHLORIDE 103 MMOL/L (99-107); CREATININE 0.73 MG/DL (0.40-0.90); ETHANOL 0.208 GM/DL (0.0-0.010); GLUCOSE 92 MG/DL (70-104); INR 1.1 INR; MAGNESIUM 1.7 MG/DL (1.5-2.4); PARTIAL THROMBOPLASTIN TIME 29 SECONDS (22-32); POTASSIUM 3.3 MMOL/L (3.5-5.1); SODIUM 139 MMOL/L (135-145); TOTAL CARBON DIOXIDE 22.1 MMOL/L (24-32); TOTAL PROTEIN 6.4 G/DL (6.4-8.2); eGFR 77 ML/MIN
--- NOTE | 2018-08-18 04:12 | NUR ---
telepsych consult initiated
--- NOTE | 2018-08-18 06:30 | NUR ---
reviewed patient chart and case with soc telepychiatrist
--- NOTE | 2018-08-18 06:33 | NUR ---
telepsychiatrist interviewing patient at this time.
[2018-08-18] MEDS ORDERED: PRAZ1CAP5 PO (07:19)
[2018-08-18] MEDS ORDERED: VALS40TA2 PO (07:19)
[2018-08-18] MEDS ORDERED: METO50TA7 PO (07:19)
[2018-08-18] MEDS ORDERED: NITR100C PO (07:34)
--- NOTE | 2018-08-18 07:38 | NUR ---
PT BROUGHT OVER FROM ROOM 14 TO RM 21 AFTER TELEPSYCH COMPLETED. PT'S PURSE TAKEN AND BELONGINGS LISTED, MEDICATION FROM HOME WILL BE TAKEN TO PHARMACY. HOME MEDS REVIEWED WITH PT AND PRINTED OUT FOR DOCTOR TO SIGN. WAITING FOR TELEPSYCH REPORT FOR RECOMMENDATIONS.
--- NOTE | 2018-08-18 07:49 | NUR ---
REGISTRATION EVALUATES PT'S BELONGINGS AND TAKES TO THE SAFE. PT SIGNS AND RN INITIALS PAPERWORK WITH [employer] MANAGER.
[2018-08-18] MEDS: nicotine 14mg patch - 24hr TD ONE ×2 (08:10→09:47)
--- NOTE | 2018-08-18 08:15 | NUR ---
PT PLACED IN GREEN GOWN AND BELONGINGS INVENTORIED AND PLACED IN LOCKER. VALUABLES ALREADY TAKEN TO SAFE BY REGISTRATION.
--- NOTE | 2018-08-18 08:32 | NUR ---
BREAKFAST IS SERVED
--- NOTE | 2018-08-18 08:36 | NUR ---
PT VERBALIZES THAT SHE DOESNT WANT TO KILL HERSELF BECAUSE SHE WANTS TO GO TO [facility].
--- NOTE | 2018-08-18 09:29 | NUR ---
PT C/O DIARRHEA, HAS MADE TWO TRIPS TO THE BATHROOM, NOTIFY CASSANDRA SPENCER TO ORDER THE IMODIUM THAT SHE NORMALY TAKES AT HOME.
[2018-08-18] MEDS ORDERED: loperamide 2mg capsule PO PRN (09:30)
[2018-08-18] MEDS ORDERED: diphenhydrAMINE 25mg capsule PO PRN (09:35)
[2018-08-18] MEDS ORDERED: albuterol 2.5 MG/3 ML nebule NEB PRN (09:35)
[2018-08-18] MEDS ORDERED: amitriptyline 10mg tablet PO SCH (09:50)
[2018-08-18] MEDS ORDERED: FLUoxetine 20mg capsule PO SCH (09:51)
[2018-08-18] MEDS ORDERED: nitrofurantoin macrocrystal 100mg capsule PO SCH (09:51)
[2018-08-18] MEDS ORDERED: metoprolol succinate 25mg (24-HOUR) SR. Tablet PO SCH (09:52)
[2018-08-18] MEDS ORDERED: atorvastatin 10mg tablet PO SCH (09:58)
[2018-08-18 10:11] LABS: URINE AMPHETAMINE SCREEN NEGATIVE (Neg); URINE BARBITUATE SCREEN NEGATIVE (Neg); URINE BENZODIAZEPINES SCREEN NEGATIVE (Neg); URINE CANNABINOID SCREEN NEGATIVE (Neg); URINE COCAINE SCREEN NEGATIVE (Neg); URINE METHADONE SCREEN NEGATIVE (Neg); URINE OPIATE SCREEN POSITIVE (Neg); URINE PHENCYCLIDINE SCREEN NEGATIVE (Neg)
[2018-08-18] MEDS ORDERED: losartan 25mg tablet PO SCH (10:27)
--- NOTE | 2018-08-18 10:30 | NUR ---
PT STATES SHE HAD DRANK THE DAY BEFORE IN ORDER TO GET THE NERVE TO KILL HERSELF. ONE OF HER SONS STOLE $[id number] FROM HER TRUST ACCOUNT AND THE OTHER SON CALLS AND LEAVES NASTY MESSAGES CALLING HER NAMES BECAUSE SHE COULDNT PAY FOR HIS DAUGHTER TO GO SOMEWHERE. THIS IS DEPRESSING FOR HER. PT STATES SHE WONT KILL HERSELF BECAUSE SHE WANTS TO GO TO [facility]. PT HAD NOT DRANK FOR A LONG TIME PRIOR TO THIS EPISODE. PT IS TRYING TO PUT DISTANCE BETWEEN HER AND HER SONS. SHE DOES HAVE FRIENDS AND ALSO A CAREGIVER. PT GETS MONEY EACH MONTH TO LIVE ON.
[2018-08-18] MEDS: HYDROcodone/acetaminophen 10/325mg tab PO PRN ×2 (10:37→16:10)
[2018-08-18] MEDS: clonazePAM 1mg tablet PO PRN ×2 (10:38→16:09)
[2018-08-18 11:07] LABS: CLARITY,URINE CLEAR (Clear); COLOR,URINE YELLOW (Yellow); GLUCOSE, URINE NEGATIVE (Neg); KETONES,URINE NEGATIVE (Neg); LEUKOCYTE ESTERASE ,URINE NEGATIVE (Neg); NITRITES, URINE NEGATIVE (Neg); OCCULT BLOOD,URINE NEGATIVE (Neg); PROTEIN,URINE NEGATIVE (Neg); UA COLLECTION TYPE CLN CATCH MIDSTREAM; UROBILINOGEN,URINE 0.2 E.U/dL (0.2-1.0)
--- NOTE | 2018-08-18 11:23 | NUR ---
PT REPORTING CHEST PAIN, EKG COMPLETED, NOTIFY DR BONE, DRAW A TROPONIN AND SENT TO LAB. PT NOW SLEEPING.
--- NOTE | 2018-08-18 12:00 | NUR ---
PT SLEEPING NOW. NO S/S DISTRESS OR PAIN.
--- NOTE | 2018-08-18 13:17 | NUR ---
Dr. Rojas notified of negative troponin. DC orders are expected
--- NOTE | 2018-08-18 14:28 | NUR ---
PT AWAKE AND EATING LUNCH, DENIES CHEST PAIN.
--- NOTE | 2018-08-18 16:11 | NUR ---
PT ASKING FOR PAIN MEDS AMINISTER ORDERED.
--- NOTE | 2018-08-18 16:15 | NUR ---
CONTACT PT'S CAREGIVER OLIVE MORALEZ TO COME AND GET PT AND TAKE HER HOME. SHE WILL BE HERE IN ABOUT 10 MIN.
--- NOTE | 2018-08-18 16:35 | NUR ---
Nursing Note: L A/C PIV discontinued, catheter tip intact, no edema, redness, bleeding. Pt tolerated well.
[2018-08-18 16:49] VITALS: BP 151/64
--- NOTE | 2018-08-18 16:52 | NUR ---
PT'S CAREGIVER ARRIVES TO TAKE PT HOME. IV DC'D, ALL BELONGINGS RETURNED TO PT, CLOTHES, JEWELRY, MEDICATIONS. PT SIGNS FOR ALL BELONGINGS.
--- NOTE | 2018-08-18 16:56 | NUR ---
PT UNDERSTANDS THAT RN WILL BE CONTACTING APS FOR HER. PT IS AGREEABLE TO THAT.
[2018-08-18] MEDS ORDERED: budesonide 0.5mg/2ml UD nebule IH SCH (20:00)
[2018-08-18] MEDS ORDERED: prazosin 1mg capsule PO SCH (21:00)
== END 2018-08-18 16:58 | disposition home or self-care (01) ==
LOC: ER 02:10
DX: R07.89 Other chest pain (principal); F32.9 Major depressive disorder, single episode, unspecified; F10.929 Alcohol use, unspecified with intoxication, unspecified; E78.00 Pure hypercholesterolemia, unspecified; I10 Essential (primary) hypertension; J44.9 Chronic obstructive pulmonary disease, unspecified; Z86.718 Personal history of other venous thrombosis and embolism; G89.29 Other chronic pain; F41.9 Anxiety disorder, unspecified; Z90.49 Acquired absence of other specified parts of digestive tract; Z90.710 Acquired absence of both cervix and uterus; Z88.6 Allergy status to analgesic agent; Z88.8 Allergy status to other drugs, medicaments and biological substances; Z79.899 Other long term (current) drug therapy
CPT/HCPCS: 36415; 71045; 80053; 80305; 80320; 81003; 83735; 84484; 85025; 85610; 85730; 93005; 99284; Q0163

== ENCOUNTER 2018-08-22 21:45 | Emergency (ER) | payer MEDICARE, MEDICAID ==
[~2018-08-22] VITALS: Ht 152.4 cm; Wt 66.4 kg
[~2018-08-22 21:45] MED LIST changes: -CEPH-571 PO; -LOPE1TAB46 PO; -LORA-512 PO; +METO50TA7 PO; -NAPR250T4 PO; -NITR0.4T51 SL; +NITR100C PO; -NITR100C6 PO; -ONDA4TAB12 PO; -POLY17PO10 PO; +PRAZ1CAP5 PO; -PREVCR VG; +VALS40TA2 PO
[2018-08-22 21:54] VITALS: BP 110/62
--- NOTE | 2018-08-22 22:19 | NUR ---
PT DENIES SI/HI. SHE IS JUST TIRED OF STRESS OF A SETTLEMENT, AND HER CHILDREN USING UP ALL THE MONEY AND C/O 'JUST WANTING HER PHOTO ALBUM BACK OF HER SON.' SHE DOES HAVE AN APPOINTMENT WITH A PSYCHOLOGIST ON 09-10-18 AND SHE HAS A FRIEND WITH HER NOW.
--- NOTE | 2018-08-22 22:54 | NUR ---
INITIATED TELE PSYCH
[2018-08-22 23:09] LABS: BASOPHILS # (AUTO) 0.1 X10'3 (0-0.2); BASOPHILS % (AUTO) 0.8 % (0-1); EOSINOPHILS # (AUTO) 0.6 X10'3 (0-0.9); EOSINOPHILS % (AUTO) 7.8 % (0-6); LYMPHOCYTES # (AUTO) 2.7 X10'3 (1.1-4.8); LYMPHOCYTES % (AUTO) 35.1 % (21-51); MEAN CORPUSCULAR HEMOGLOBIN 30.3 PG (27.0-31.0); MEAN CORPUSCULAR HGB CONC 33.4 g/dL (33.0-36.5); MEAN CORPUSCULAR VOLUME 90.8 FL (78-98); MEAN PLATELET VOLUME 8.7 FL (7.4-10.4); MONOCYTES # (AUTO) 0.6 X10'3 (0-0.9); MONOCYTES % (AUTO) 7.8 % (2-12); NEUTROPHILS # (AUTO) 3.7 X10'3 (1.8-7.7); NEUTROPHILS % (AUTO) 48.5 % (42-75); PLATELET COUNT 382 X10'3 (140-440); RED BLOOD COUNT 3.96 X10'6 (4.20-5.60); RED CELL DISTRIBUTION WIDTH 14.5 % (11.5-14.5); WHITE BLOOD COUNT 7.7 X10'3 (4.5-11.0)
[2018-08-22 23:20] LABS: ALANINE AMINOTRANSFERASE 193 U/L (12-78); ALBUMIN 3.5 G/DL (3.4-5.0); ALBUMIN/GLOBULIN RATIO 1.1 (1.1-1.5); ALKALINE PHOSPHATASE 238 IU/L (46-116); ANION GAP 10 (8-16); ASPARTATE AMINO TRANSFERASE 410 U/L (10-37); BILIRUBIN,TOTAL 0.9 MG/DL (0.1-1.0); BLOOD UREA NITROGEN 8 MG/DL (7-18); BUN/CREATININE RATIO 11.1 (6.6-38.0); CALCIUM 8.9 MG/DL (8.5-10.1); CHLORIDE 102 MMOL/L (99-107); CREATININE 0.72 MG/DL (0.40-0.90); ETHANOL 0.152 GM/DL (0.0-0.010); GLUCOSE 95 MG/DL (70-104); POTASSIUM 4.2 MMOL/L (3.5-5.1); SODIUM 136 MMOL/L (135-145); TOTAL CARBON DIOXIDE 24.2 MMOL/L (24-32); TOTAL PROTEIN 6.8 G/DL (6.4-8.2); eGFR 79 ML/MIN
--- NOTE | 2018-08-22 23:45 | NUR ---
PT TALKING TO SOC
[2018-08-22 23:49] LABS: URINE AMPHETAMINE SCREEN NEGATIVE (Neg); URINE BARBITUATE SCREEN NEGATIVE (Neg); URINE BENZODIAZEPINES SCREEN NEGATIVE (Neg); URINE CANNABINOID SCREEN NEGATIVE (Neg); URINE COCAINE SCREEN NEGATIVE (Neg); URINE METHADONE SCREEN NEGATIVE (Neg); URINE OPIATE SCREEN POSITIVE (Neg); URINE PHENCYCLIDINE SCREEN NEGATIVE (Neg)
--- NOTE | 2018-08-22 23:50 | NUR ---
PATIENT LYING SUPINE IN BED EYES CLOSED COVERS ON RR EVEN UN LABORED PATIENTS AUNT AT BEDSIDE NO OBSERVABLE S/S OF ACUTE STRESS AT THIS TIME
--- NOTE | 2018-08-22 23:59 | NUR ---
TELE CALLED BACK, VERBALIZED THAT PATIENT IS APPROPRIATE FOR DISCHARGE
== END 2018-08-23 00:31 ==
LOC: ER 21:45
DX: R45.851 Suicidal ideations (principal); F41.9 Anxiety disorder, unspecified; E78.00 Pure hypercholesterolemia, unspecified; G89.29 Other chronic pain; I10 Essential (primary) hypertension; J44.9 Chronic obstructive pulmonary disease, unspecified; Z86.711 Personal history of pulmonary embolism; Z90.49 Acquired absence of other specified parts of digestive tract; Z90.710 Acquired absence of both cervix and uterus; Z98.890 Other specified postprocedural states; Z88.8 Allergy status to other drugs, medicaments and biological substances; Z88.6 Allergy status to analgesic agent; Z79.899 Other long term (current) drug therapy
CPT/HCPCS: 36415; 80053; 80305; 80320; 85025; 99284

== ENCOUNTER 2018-11-15 15:18 | Emergency (ER) | payer MEDICARE, MEDICAID ==
[~2018-11-15] VITALS: Ht 152.4 cm; Wt 70.2 kg
[2018-11-15 15:20] VITALS: BP 126/63
[2018-11-15] MEDS ORDERED: PRED20TA PO (16:59)
[2018-11-15] MEDS ORDERED: LIDO700A32 TP (17:02)
[2018-11-15] MEDS ORDERED: prednisone 10mg tablet PO STA (17:03)
[2018-11-15] MEDS ORDERED: predniSONE 20 mg tablet PO STA (17:08)
--- NOTE | 2018-11-15 17:19 | NUR ---
pt meds given discharge paper given .prescription with the pt.pt discharge home with field care manager.
== END 2018-11-15 17:27 | disposition home or self-care (01) ==
LOC: ER 15:19
DX: R07.89 Other chest pain (principal); J44.9 Chronic obstructive pulmonary disease, unspecified; E78.00 Pure hypercholesterolemia, unspecified; I10 Essential (primary) hypertension; G89.29 Other chronic pain; F41.9 Anxiety disorder, unspecified; F32.9 Major depressive disorder, single episode, unspecified; Z90.49 Acquired absence of other specified parts of digestive tract; Z86.711 Personal history of pulmonary embolism; Z90.710 Acquired absence of both cervix and uterus; Z98.890 Other specified postprocedural states; Z88.6 Allergy status to analgesic agent; Z88.8 Allergy status to other drugs, medicaments and biological substances; Z79.899 Other long term (current) drug therapy
CPT/HCPCS: 71045; 99284; J7512

== ENCOUNTER 2019-05-14 15:42 | Emergency (ER) | payer MEDICARE, MEDICAID ==
[~2019-05-14] VITALS: Ht 152.4 cm; Wt 74.8 kg
[~2019-05-14 15:42] MED LIST changes: +LIDO700A32 TP
[2019-05-14 15:52] VITALS: BP 148/84
[2019-05-14 16:20] LABS: BASOPHILS # (AUTO) 0.1 X10'3 (0-0.2); EOSINOPHILS # (AUTO) 0.5 X10'3 (0-0.9); EOSINOPHILS % (AUTO) 8.1 % (0-6); HEMATOCRIT 37.3 % (35.0-45.0); HEMOGLOBIN 12.6 g/dl (12.0-16.0); LYMPHOCYTES # (AUTO) 2.1 X10'3 (1.1-4.8); LYMPHOCYTES % (AUTO) 31.9 % (21-51); MEAN CORPUSCULAR HEMOGLOBIN 30.4 PG (27.0-31.0); MEAN CORPUSCULAR HGB CONC 33.8 g/dL (33.0-36.5); MEAN CORPUSCULAR VOLUME 89.9 FL (78-98); MEAN PLATELET VOLUME 7.2 FL (7.4-10.4); MONOCYTES # (AUTO) 0.5 X10'3 (0-0.9); MONOCYTES % (AUTO) 7.6 % (2-12); NEUTROPHILS # (AUTO) 3.4 X10'3 (1.8-7.7); NEUTROPHILS % (AUTO) 51.4 % (42-75); PLATELET COUNT 515 X10'3 (140-440); RED BLOOD COUNT 4.15 X10'6 (4.20-5.60); RED CELL DISTRIBUTION WIDTH 13.9 % (11.5-14.5); WHITE BLOOD COUNT 6.6 X10'3 (4.5-11.0)
[2019-05-14 16:31] LABS: CLARITY,URINE CLOUDY (Clear); COLOR,URINE YELLOW (Yellow); GLUCOSE, URINE NEGATIVE (Neg); KETONES,URINE NEGATIVE (Neg); LEUKOCYTE ESTERASE ,URINE LARGE (Neg); NITRITES, URINE NEGATIVE (Neg); OCCULT BLOOD,URINE TRACE-INTACT (Neg); PROTEIN,URINE NEGATIVE (Neg); UA COLLECTION TYPE CLN CATCH MIDSTREAM; UROBILINOGEN,URINE 0.2 E.U/dL (0.2-1.0)
[2019-05-14 16:33] LABS: ALANINE AMINOTRANSFERASE 35 U/L (12-78); ALBUMIN 3.5 G/DL (3.4-5.0); ALBUMIN/GLOBULIN RATIO 0.9 (1.1-1.5); ALKALINE PHOSPHATASE 103 IU/L (46-116); ANION GAP 8 (8-16); ASPARTATE AMINO TRANSFERASE 22 U/L (10-37); BILIRUBIN,TOTAL 0.3 MG/DL (0.1-1.0); BLOOD UREA NITROGEN 8 MG/DL (7-18); CALCIUM 8.7 MG/DL (8.5-10.1); CHLORIDE 101 MMOL/L (99-107); GLUCOSE 97 MG/DL (70-104); POTASSIUM 5.4 MMOL/L (3.5-5.1); SODIUM 135 MMOL/L (135-145); TOTAL CARBON DIOXIDE 26.3 MMOL/L (24-32); TOTAL PROTEIN 7.2 G/DL (6.4-8.2); eGFR 54 ML/MIN
[2019-05-14 16:37] LABS: BACTERIA,URINE 4+ /HPF (Neg); MUCUS STRANDS NONE SEEN /LPF (Neg); RBC,URINE 0-2 /HPF (0-2); RENAL CELLS, URINE FEW /HPF; SQUAMOUS EPITHELIAL CELL,UR NONE SEEN /LPF (FEW); WBC CLUMPS,URINE MODERATE /HPF (NEGATIVE); WBC,URINE TNTC /HPF (0-4)
[2019-05-14] MEDS ORDERED: CEPH-571 PO (17:12)
--- NOTE | 2019-05-17 10:30 | NUR ---
no change needed for her antibiotic
== END 2019-05-14 17:31 | disposition home or self-care (01) ==
LOC: ER 15:43
DX: N39.0 Urinary tract infection, site not specified (principal); E78.00 Pure hypercholesterolemia, unspecified; I10 Essential (primary) hypertension; J44.9 Chronic obstructive pulmonary disease, unspecified; G89.29 Other chronic pain; F41.9 Anxiety disorder, unspecified; F32.9 Major depressive disorder, single episode, unspecified; Z86.711 Personal history of pulmonary embolism; Z90.49 Acquired absence of other specified parts of digestive tract; Z90.710 Acquired absence of both cervix and uterus; Z98.890 Other specified postprocedural states; Z88.8 Allergy status to other drugs, medicaments and biological substances; Z88.6 Allergy status to analgesic agent; Z79.899 Other long term (current) drug therapy
CPT/HCPCS: 36415; 80053; 81001; 85025; 87077; 87088; 87186; 99284

== ENCOUNTER 2019-06-14 16:45 | Emergency (ER) | payer MEDICARE, MEDICAID ==
[~2019-06-14] VITALS: Ht 152.4 cm; Wt 75.0 kg
[~2019-06-14 16:45] MED LIST changes: +CEPH-571 PO
[2019-06-14 16:54] VITALS: BP 157/112
[2019-06-14 17:31] LABS: CLARITY,URINE SLIGHTLY CLOUDY (Clear); COLOR,URINE YELLOW (Yellow); GLUCOSE, URINE NEGATIVE (Neg); KETONES,URINE NEGATIVE (Neg); LEUKOCYTE ESTERASE ,URINE LARGE (Neg); NITRITES, URINE NEGATIVE (Neg); OCCULT BLOOD,URINE TRACE-INTACT (Neg); PH,URINE 6.5 (4.8-8.0); PROTEIN,URINE NEGATIVE (Neg); UROBILINOGEN,URINE 0.2 E.U/dL (0.2-1.0)
[2019-06-14] MEDS ORDERED: FOSFOMYCIN TROMETHAMINE 3 GM PACKET PO ONE (17:35)
[2019-06-14 17:39] LABS: UA COLLECTION TYPE CLN CATCH MIDSTREAM
[2019-06-14 17:41] LABS: SQUAMOUS EPITHELIAL CELL,UR MODERATE /LPF (FEW)
[2019-06-14 17:43] LABS: BACTERIA,URINE FEW /HPF (Neg); RBC,URINE 0-2 /HPF (0-2); WBC,URINE TNTC /HPF (0-4)
[2019-06-14] MEDS ORDERED: ketorolac trometh inj. 60 MG/2 ML VIAL IM ONE (17:45)
== END 2019-06-14 18:23 | disposition home or self-care (01) ==
LOC: ER 16:45
DX: N39.0 Urinary tract infection, site not specified (principal); E78.00 Pure hypercholesterolemia, unspecified; I10 Essential (primary) hypertension; J44.9 Chronic obstructive pulmonary disease, unspecified; G89.29 Other chronic pain; Z90.49 Acquired absence of other specified parts of digestive tract; Z90.710 Acquired absence of both cervix and uterus; Z86.711 Personal history of pulmonary embolism; Z98.890 Other specified postprocedural states; Z88.5 Allergy status to narcotic agent; Z88.6 Allergy status to analgesic agent; Z79.899 Other long term (current) drug therapy
CPT/HCPCS: 81001; 87077; 87088; 87186; 96372; 99283; J1885

== ENCOUNTER 2020-01-30 17:27 | Emergency (ER) | payer MEDICARE, MEDICAID ==
[~2020-01-30] VITALS: Ht 152.4 cm; Wt 77.4 kg
[2020-01-30 17:30] VITALS: BP 131/68
[2020-01-30] MEDS ORDERED: DOXY100C77 PO (18:35)
== END 2020-01-30 19:02 | disposition home or self-care (01) ==
LOC: ER 17:28
DX: J44.1 Chronic obstructive pulmonary disease with (acute) exacerbation (principal); E78.00 Pure hypercholesterolemia, unspecified; J44.9 Chronic obstructive pulmonary disease, unspecified; G89.29 Other chronic pain; F41.9 Anxiety disorder, unspecified; F32.9 Major depressive disorder, single episode, unspecified; Z20.828 Contact with and (suspected) exposure to other viral communicable diseases; Z86.718 Personal history of other venous thrombosis and embolism; Z90.49 Acquired absence of other specified parts of digestive tract; Z90.710 Acquired absence of both cervix and uterus; Z98.890 Other specified postprocedural states; Z88.6 Allergy status to analgesic agent; Z88.8 Allergy status to other drugs, medicaments and biological substances; Z79.899 Other long term (current) drug therapy
CPT/HCPCS: 36415; 71045; 87635; 99284

== ENCOUNTER 2020-09-13 06:06 | Emergency (ER) | payer MEDICARE, MEDICAID ==
[~2020-09-13] VITALS: Ht 152.4 cm; Wt 70.9 kg
[~2020-09-13 06:06] MED LIST changes: +AMIO200T61 PO; +ASPI-611 PO; +CEFU500T66 PO; -CEPH-571 PO; +CETI10CA PO; +CHOL20004 PO; -CLON-514 PO; +CLON0.1T2 PO; +CLON1TAB96 PO; +DOCU100C33 PO; +FERR325T28 PO; +FLUT15.87; +GUAI-422 PO; -LIDO700A32 TP; +LOPE2CAP PO; +NITR0.4T51 SL; -NITR100C PO; +ONDA4TAB6 PO; +OSC500T PO; -PRAV20TA PO; +PRAV20TA4 PO; -PRAZ1CAP5 PO
--- NOTE | 2020-09-13 06:41 | NUR ---
CALLED PT'S TIRE CENTER SUPERVISOR OLIVE MORALEZ [phone] TO NOTIFY HER THAT PT IS HERE. SHE WILL BE PT'S RIDE HOME IF DISCHARGED.
--- NOTE | 2020-09-13 06:45 | NUR ---
PT TAKEN TO CT VIA GURNEY BY REMY.
[2020-09-13 08:15] LABS: BASOPHILS # (AUTO) 0.1 X10'3 (0-0.2); BASOPHILS % (AUTO) 0.6 % (0-1); EOSINOPHILS # (AUTO) 0.3 X10'3 (0-0.9); EOSINOPHILS % (AUTO) 3.8 % (0-6); HEMATOCRIT 35.7 % (35.0-45.0); HEMOGLOBIN 12.3 g/dl (12.0-16.0); LYMPHOCYTES # (AUTO) 1.3 X10'3 (1.1-4.8); LYMPHOCYTES % (AUTO) 15.3 % (21-51); MEAN CORPUSCULAR HEMOGLOBIN 31.4 PG (27.0-31.0); MEAN CORPUSCULAR HGB CONC 34.4 g/dL (33.0-36.5); MEAN CORPUSCULAR VOLUME 91.3 FL (78-98); MEAN PLATELET VOLUME 7.9 FL (7.4-10.4); MONOCYTES # (AUTO) 0.6 X10'3 (0-0.9); MONOCYTES % (AUTO) 7.5 % (2-12); NEUTROPHILS % (AUTO) 72.8 % (42-75); PLATELET COUNT 455 X10'3 (140-440); RED BLOOD COUNT 3.91 X10'6 (4.20-5.60); RED CELL DISTRIBUTION WIDTH 13.4 % (11.5-14.5); WHITE BLOOD COUNT 8.3 X10'3 (4.5-11.0)
[2020-09-13 08:29] LABS: ALANINE AMINOTRANSFERASE 22 U/L (12-78); ALBUMIN 3.4 G/DL (3.4-5.0); ALKALINE PHOSPHATASE 70 IU/L (46-116); ANION GAP 8 (8-16); ASPARTATE AMINO TRANSFERASE 24 U/L (10-37); BILIRUBIN,TOTAL 0.4 MG/DL (0.1-1.0); BLOOD UREA NITROGEN 9 MG/DL (7-18); BUN/CREATININE RATIO 9.4 (6.6-38.0); CALCIUM 8.6 MG/DL (8.5-10.1); CHLORIDE 99 MMOL/L (99-107); CREATININE 0.96 MG/DL (0.40-0.90); GLUCOSE 117 MG/DL (70-104); POTASSIUM 4.6 MMOL/L (3.5-5.1); SODIUM 134 MMOL/L (135-145); TOTAL CARBON DIOXIDE 26.9 MMOL/L (24-32); TOTAL PROTEIN 6.9 G/DL (6.4-8.2); eGFR 56 ML/MIN
[2020-09-13 08:43] VITALS: BP 151/74
--- NOTE | 2020-09-13 08:56 | NUR ---
PT'S CAREGIVER IS CALLED AND WILL BE HERE IN ABOUT 20 MIN TO TAKE HER HOME.
--- NOTE | 2020-09-13 09:20 | NUR ---
PT'S CAREGIVER ARRIVES, ASSIST PT TO W/C W/O DIFFICULTY. CAREGIVER TAKES PT OUT TO HER CAR.
== END 2020-09-13 09:32 | disposition home or self-care (01) ==
LOC: ER 06:06
DX: S02.2XXA Fracture of nasal bones, initial encounter for closed fracture (principal); S16.1XXA Strain of muscle, fascia and tendon at neck level, initial encounter; R04.0 Epistaxis; E78.00 Pure hypercholesterolemia, unspecified; I10 Essential (primary) hypertension; J44.9 Chronic obstructive pulmonary disease, unspecified; G89.29 Other chronic pain; Z87.440 Personal history of urinary (tract) infections; Z86.711 Personal history of pulmonary embolism; Z90.49 Acquired absence of other specified parts of digestive tract; Z98.890 Other specified postprocedural states; Z90.710 Acquired absence of both cervix and uterus; Z79.82 Long term (current) use of aspirin; Z79.899 Other long term (current) drug therapy; Z88.1 Allergy status to other antibiotic agents; Z88.6 Allergy status to analgesic agent; Z88.8 Allergy status to other drugs, medicaments and biological substances; W06.XXXA Fall from bed, initial encounter; Y93.01 Activity, walking, marching and hiking; Y92.89 Other specified places as the place of occurrence of the external cause; Y99.8 Other external cause status
CPT/HCPCS: 36415; 70450; 70486; 72125; 72128; 80053; 85025; 99285

== ENCOUNTER 2020-09-22 16:08 | Emergency (ER) | payer MEDICARE, MEDICAID ==
[~2020-09-22] VITALS: Ht 177.8 cm; Wt 75.0 kg
[~2020-09-22 16:08] MED LIST changes: -AMIO200T61 PO
[2020-09-22 18:23] LABS: CLARITY,URINE SLIGHTLY CLOUDY (Clear); COLOR,URINE STRAW (Yellow); GLUCOSE, URINE NEGATIVE (Neg); KETONES,URINE NEGATIVE (Neg); LEUKOCYTE ESTERASE ,URINE MODERATE (Neg); NITRITES, URINE NEGATIVE (Neg); OCCULT BLOOD,URINE NEGATIVE (Neg); PROTEIN,URINE NEGATIVE (Neg); UROBILINOGEN,URINE 0.2 E.U/dL (0.2-1.0)
[2020-09-22 18:24] LABS: UA COLLECTION TYPE CLN CATCH MIDSTREAM
[2020-09-22 18:51] LABS: BACTERIA,URINE 1+ /HPF (Neg); RBC,URINE NONE SEEN /HPF (0-2); SQUAMOUS EPITHELIAL CELL,UR FEW /LPF (FEW)
[2020-09-22] MEDS ORDERED: NITR100C6 PO (18:51)
[2020-09-22 18:52] LABS: WBC CLUMPS,URINE FEW /HPF (NEGATIVE)
[2020-09-22] MEDS ORDERED: CEFU500T66 PO (19:24)
[2020-09-22 19:39] VITALS: BP 147/63
== END 2020-09-22 19:40 | disposition home or self-care (01) ==
LOC: ER 16:09
DX: R30.0 Dysuria (principal); M54.5 Low back pain; R33.9 Retention of urine, unspecified; R30.9 Painful micturition, unspecified; E78.00 Pure hypercholesterolemia, unspecified; I10 Essential (primary) hypertension; J44.9 Chronic obstructive pulmonary disease, unspecified; G89.29 Other chronic pain; F41.9 Anxiety disorder, unspecified; F32.9 Major depressive disorder, single episode, unspecified; Z86.711 Personal history of pulmonary embolism; Z87.440 Personal history of urinary (tract) infections; Z90.49 Acquired absence of other specified parts of digestive tract; Z90.710 Acquired absence of both cervix and uterus; Z88.1 Allergy status to other antibiotic agents; Z88.8 Allergy status to other drugs, medicaments and biological substances; Z79.82 Long term (current) use of aspirin; Z79.2 Long term (current) use of antibiotics; Z79.899 Other long term (current) drug therapy
CPT/HCPCS: 81001; 87077; 87088; 87186; 99283

== ENCOUNTER 2021-04-09 22:45 | Emergency (ER) | payer MEDICARE, MEDICAID ==
[~2021-04-09] VITALS: Ht 170.2 cm; Wt 70.5 kg
[~2021-04-09 22:45] MED LIST changes: +NITR100C6 PO
[2021-04-09 23:20] VITALS: BP 120/54
== END 2021-04-10 01:42 | disposition home or self-care (01) ==
LOC: ER 22:47
DX: S09.90XA Unspecified injury of head, initial encounter (principal); S06.0X0A Concussion without loss of consciousness, initial encounter; R51.9 Headache, unspecified; E78.00 Pure hypercholesterolemia, unspecified; I10 Essential (primary) hypertension; J44.9 Chronic obstructive pulmonary disease, unspecified; G89.29 Other chronic pain; F41.9 Anxiety disorder, unspecified; F32.9 Major depressive disorder, single episode, unspecified; Z87.01 Personal history of pneumonia (recurrent); Z87.440 Personal history of urinary (tract) infections; Z90.49 Acquired absence of other specified parts of digestive tract; Z90.710 Acquired absence of both cervix and uterus; Z88.1 Allergy status to other antibiotic agents; Z88.8 Allergy status to other drugs, medicaments and biological substances; Z79.82 Long term (current) use of aspirin; Z79.2 Long term (current) use of antibiotics; Z79.899 Other long term (current) drug therapy; W19.XXXA Unspecified fall, initial encounter; Y93.89 Activity, other specified; Y92.89 Other specified places as the place of occurrence of the external cause; Y99.8 Other external cause status
CPT/HCPCS: 70450; 72125; 99285